=== PATIENT | male | born 1955 | race Caucasian/White ===

== ENCOUNTER 2018-09-19 11:24 | Inpatient (IN) | payer OTHER, MEDICAID ==
[~2018-09-19] VITALS: Ht 170.2 cm; Wt 109.4 kg
[2018-09-19] MEDS ORDERED: ADENOSINE 3 MG/ML 2ML VIAL IV ONE ×4 (11:35→11:45)
[2018-09-19] MEDS ORDERED: DILTIAZEM HCL 5MG/ML 5ML VIAL IV ONE ×2 (11:48→12:00)
[2018-09-19] MEDS ORDERED: ONDANSETRON HCL 4MG/2ML INJ IV STA (11:53)
[2018-09-19] MEDS ORDERED: MORPHINE SULFATE 4 MG/ML CPJ (NOT FOR IM USE) IV STA (11:53)
[2018-09-19] MEDS ORDERED: FUROSEMIDE 40MG/4ML VIAL IV ONE (12:00)
[2018-09-19] MEDS ORDERED: NITROGLYCERIN OINT 1GM/INCH UDPKT TD ONE (12:00)
[2018-09-19] MEDS ORDERED: ASPIRIN 81MG TABLET PO ONE (12:00)
[2018-09-19] MEDS ORDERED: DILTIAZEM HCL 125 MG in DEXT 5% WATER 100 ML IV ONE (12:00)
[2018-09-19 12:01] LABS: BASOPHILS % 1.1 % (0.0-2.0); EOSINOPHILS % 2.6 % (0.0-5.0); HEMATOCRIT. 32.5 % (42.0-52.0); HEMOGLOBIN. 10.6 g/dL (14.0-18.0); LYMPHOCYTES % 28.8 % (20.0-50.0); MEAN CORPUSCULAR VOLUME 92.3 fL (80.0-94.0); MEAN PLATELET VOLUME 7.5 fl (7.4-10.4); NEUTROPHILS % 54.5 % (40.0-76.0); PLATELET 116 x1000/uL (130-400); RED BLOOD CELL COUNT 3.52 mill/uL (4.7-6.1); RED CELL DISTRIBUTION WIDTH 18.5 % (11.6-14.6)
[2018-09-19 12:09] LABS: CHLORIDE 102 mEq/L (98-107)
[2018-09-19 12:14] LABS: INR 1.4; PARTIAL THROMBOPLASTIN TIME 27.7 sec (23.4-31.0); PROTHROMBIN TIME 13.7 sec (9.6-11.0)
[2018-09-19 12:15] LABS: ETHANOL BLOOD 42 mg/dL
[2018-09-19] MEDS ORDERED: DILTIAZEM HCL 125 MG in DEXT 5% WATER 100 ML IV NR (12:15)
[2018-09-19 12:20] LABS: T4 FREE 1.31 ng/dL (0.76-1.46)
[2018-09-19] MEDS ORDERED: ONDANSETRON HCL 4MG/2ML INJ IV PRN (12:45)
[2018-09-19] MEDS ORDERED: ENOXAPARIN 40MG/0.4ML SYR SUBCUT SCH (12:45)
[2018-09-19] MEDS ORDERED: CLONIDINE 0.1MG TABLET PO PRN (12:45)
[2018-09-19] MEDS ORDERED: ACETAMINOPHEN 325MG TABLET PO PRN (12:45)
[2018-09-19] MEDS ORDERED: LORAZEPAM 2MG/ML CPJ IV PRN (12:45)
[2018-09-19] MEDS ORDERED: MORPHINE SULFATE 2 MG/ML CPJ (NOT FOR IM USE) IV PRN (12:45)
[2018-09-19] MEDS ORDERED: MAGNESIUM/ALUMINUM HYDROXIDE/SIMETHICONE 30ML UDC PO PRN (12:45)
[2018-09-19] MEDS ORDERED: IPRATROPIUM/ALBUTEROL 0.5-3(2.5)MG/3ML NEB INH PRN (12:45)
[2018-09-19 15:52] VITALS: BP 136/81
[2018-09-19] MEDS ORDERED: DILTIAZEM HCL 5MG/ML 5ML VIAL IV PRN (16:30)
[2018-09-19] MEDS ORDERED: HYDROMORPHONE HCL/PF 2MG/ML CPJ IV PRN (16:30)
[2018-09-19 17:14] LABS: CHLORIDE 103 mEq/L (98-107)
[2018-09-19 18:00] VITALS: BP 141/77
[2018-09-19] MEDS: ENOXAPARIN 100MG/ML SYR SUBCUT SCH (18:28)
[2018-09-19 20:00] VITALS: BP 138/73
[2018-09-19] MEDS: IPRATROPIUM BROMIDE (0.02%) 0.5MG/2.5ML NEB HHN SCH (20:27)
[2018-09-19] MEDS: DILTIAZEM HCL 60MG TABLET PO SCH (21:03)
[2018-09-19 22:00] VITALS: BP 137/70
[2018-09-19] MEDS: GUAIFENESIN 200MG/10ML SUGAR FREE UDC PO PRN (22:57)
[2018-09-20] VITALS (12 sets, daily range): BP systolic 117–156; BP diastolic 62–84
[2018-09-20] MEDS: IPRATROPIUM BROMIDE (0.02%) 0.5MG/2.5ML NEB HHN SCH ×4 (02:07→20:31)
[2018-09-20] MEDS: ENOXAPARIN 100MG/ML SYR SUBCUT SCH (05:39)
[2018-09-20] MEDS: DILTIAZEM HCL 60MG TABLET PO SCH ×4 (05:40→23:49)
[2018-09-20] MEDS: GUAIFENESIN 200MG/10ML SUGAR FREE UDC PO PRN ×2 (06:05→23:50)
[2018-09-20 06:51] LABS: HEMATOCRIT. 28.6 % (42.0-52.0); HEMOGLOBIN. 9.6 g/dL (14.0-18.0); MEAN CORPUSCULAR HEMOGLOBIN 30.7 pg (28.0-32.0); MEAN CORPUSCULAR VOLUME 91.6 fL (80.0-94.0); MEAN PLATELET VOLUME 7.4 fl (7.4-10.4); PLATELET 93 x1000/uL (130-400); RED BLOOD CELL COUNT 3.13 mill/uL (4.7-6.1); RED CELL DISTRIBUTION WIDTH 18.2 % (11.6-14.6)
[2018-09-20 07:36] LABS: CHLORIDE 102 mEq/L (98-107)
[2018-09-20 07:44] LABS: LDL CHOLESTEROL 53 mg/dL (5-100); T4 FREE 1.29 ng/dL (0.76-1.46)
[2018-09-20 07:45] LABS: HDL CHOLESTEROL 27 mg/dL (40-59)
[2018-09-20] MEDS: ASPIRIN 81MG EC TABLET PO SCH (08:32)
[2018-09-20] MEDS ORDERED: FUROSEMIDE 40MG/4ML VIAL IV SCH (09:00)
[2018-09-20 10:09] LABS: NUCLEATED RED BLOOD CELLS 1 /100 WBC
[2018-09-20 10:10] LABS: PLATELET ESTIMATE DECREASED
[2018-09-20] MEDS: POTASSIUM CHLORIDE 20MEQ TABLET SR PO SCH (11:48)
[2018-09-20] MEDS ORDERED: MAGNESIUM 2 G PREMIX 50 ML IV NR (13:00)
[2018-09-20 13:17] LABS: CLARITY URINE CLEAR (CLEAR); COLOR URINE DARK YELLOW (YELLOW); KETONES URINE NEGATIVE (NEGATIVE); LEUKOCYTE ESTERASE URINE NEGATIVE (NEGATIVE); NITRITE URINE NEGATIVE (NEGATIVE); OCCULT BLOOD URINE TRACE (NEGATIVE); PROTEIN URINE NEGATIVE (NEGATIVE)
[2018-09-20 13:39] LABS: *AMPHETAMINES SCREEN URINE NEGATIVE (NEGATIVE); *BARBITURATES SCREEN URINE NEGATIVE (NEGATIVE); *BENZODIAZEPINES SCREEN URINE NEGATIVE (NEGATIVE)
[2018-09-20 13:40] LABS: *COCAINE SCREEN URINE NEGATIVE (NEGATIVE); METHADONE URINE SCREEN NEGATIVE (NEGATIVE); OPIATES URINE SCREEN PRESUMTIVE POSITIVE (NEGATIVE); PHENCYCLIDINE URINE SCREEN NEGATIVE (NEGATIVE)
[2018-09-20 13:43] LABS: CANNABINOID URINE SCREEN NEGATIVE (NEGATIVE)
[2018-09-20] MEDS: FUROSEMIDE 40MG/4ML VIAL IV SCH (18:19)
[2018-09-20] MEDS: ENOXAPARIN 150MG/ML SYR SUBCUT SCH (18:20)
[2018-09-21] VITALS (12 sets, daily range): BP systolic 110–146; BP diastolic 53–88
[2018-09-21] MEDS: IPRATROPIUM BROMIDE (0.02%) 0.5MG/2.5ML NEB HHN SCH ×4 (01:43→20:30)
[2018-09-21] MEDS: DILTIAZEM HCL 60MG TABLET PO SCH ×3 (06:07→17:58)
[2018-09-21] MEDS: ENOXAPARIN 150MG/ML SYR SUBCUT SCH (06:08)
[2018-09-21] MEDS: GUAIFENESIN 200MG/10ML SUGAR FREE UDC PO PRN ×3 (06:24→21:41)
[2018-09-21] MEDS: FUROSEMIDE 40MG/4ML VIAL IV SCH ×2 (06:25→17:58)
[2018-09-21 06:36] LABS: HEMATOCRIT. 27.2 % (42.0-52.0); HEMOGLOBIN. 9.1 g/dL (14.0-18.0); MEAN CORPUSCULAR HEMOGLOBIN 30.7 pg (28.0-32.0); MEAN CORPUSCULAR VOLUME 91.4 fL (80.0-94.0); MEAN PLATELET VOLUME 7.6 fl (7.4-10.4); PLATELET 88 x1000/uL (130-400); RED BLOOD CELL COUNT 2.98 mill/uL (4.7-6.1); RED CELL DISTRIBUTION WIDTH 18.2 % (11.6-14.6)
[2018-09-21 07:37] LABS: CHLORIDE 99 mEq/L (98-107)
[2018-09-21] MEDS: ASPIRIN 81MG EC TABLET PO SCH (09:13)
[2018-09-21] MEDS: POTASSIUM CHLORIDE 20MEQ TABLET SR PO SCH ×2 (09:13→18:46)
[2018-09-21] MEDS: DOCUSATE SODIUM 100MG CAPSULE PO PRN (13:13)
[2018-09-21 13:26] LABS: PLATELET ESTIMATE DECREASED
[2018-09-21] MEDS: APIXABAN 5 MG TABLET PO SCH (17:57)
[2018-09-21] MEDS: LISINOPRIL 10MG TABLET PO SCH (21:16)
[2018-09-21] MEDS: HYDROCODONE/ACETAMINOPHEN 5/325MG TABLET PO PRN (21:41)
[2018-09-22] VITALS (11 sets, daily range): BP systolic 103–134; BP diastolic 51–88
[2018-09-22] MEDS: DILTIAZEM HCL 60MG TABLET PO SCH ×4 (00:24→17:28)
[2018-09-22] MEDS: IPRATROPIUM BROMIDE (0.02%) 0.5MG/2.5ML NEB HHN SCH ×4 (01:47→22:10)
[2018-09-22] MEDS: FUROSEMIDE 40MG/4ML VIAL IV SCH (06:16)
[2018-09-22 06:30] LABS: CHLORIDE 98 mEq/L (98-107); HEMATOCRIT. 27.5 % (42.0-52.0); HEMOGLOBIN. 9.1 g/dL (14.0-18.0); MEAN CORPUSCULAR HEMOGLOBIN 30.1 pg (28.0-32.0); MEAN CORPUSCULAR VOLUME 91.3 fL (80.0-94.0); MEAN PLATELET VOLUME 7.3 fl (7.4-10.4); PLATELET 88 x1000/uL (130-400); RED BLOOD CELL COUNT 3.01 mill/uL (4.7-6.1); RED CELL DISTRIBUTION WIDTH 18.6 % (11.6-14.6)
[2018-09-22] MEDS: APIXABAN 5 MG TABLET PO SCH ×2 (08:12→17:51)
[2018-09-22] MEDS: POTASSIUM CHLORIDE 20MEQ TABLET SR PO SCH ×2 (08:12→17:51)
[2018-09-22] MEDS ORDERED: POTASSIUM CHLORIDE 20MEQ TABLET SR PO NR (09:45)
[2018-09-22] MEDS: LISINOPRIL 10MG TABLET PO SCH ×2 (10:19→21:06)
[2018-09-22 10:24] LABS: PLATELET ESTIMATE DECREASED
[2018-09-22] MEDS: METOLAZONE 5MG TABLET PO SCH ×2 (15:00→21:06)
[2018-09-22] MEDS: GUAIFENESIN 200MG/10ML SUGAR FREE UDC PO PRN ×2 (15:09→21:45)
[2018-09-22] MEDS: FUROSEMIDE 100MG/10ML VIAL IV SCH (17:52)
[2018-09-22] MEDS: HYDROCODONE/ACETAMINOPHEN 5/325MG TABLET PO PRN (21:47)
[2018-09-23] VITALS: BP 112/39
[2018-09-23] MEDS: DILTIAZEM HCL 60MG TABLET PO SCH ×2 (00:10→05:54)
[2018-09-23] MEDS: IPRATROPIUM BROMIDE (0.02%) 0.5MG/2.5ML NEB HHN SCH ×4 (02:40→21:20)
[2018-09-23 04:00] VITALS: BP 113/50
[2018-09-23] MEDS: FUROSEMIDE 100MG/10ML VIAL IV SCH ×2 (06:24→18:01)
[2018-09-23 06:39] LABS: CHLORIDE 89 mEq/L (98-107)
[2018-09-23 06:55] LABS: HEMATOCRIT. 27.9 % (42.0-52.0); HEMOGLOBIN. 9.4 g/dL (14.0-18.0); MEAN CORPUSCULAR HEMOGLOBIN 30.4 pg (28.0-32.0); MEAN CORPUSCULAR VOLUME 90.3 fL (80.0-94.0); MEAN PLATELET VOLUME 7.5 fl (7.4-10.4); PLATELET 92 x1000/uL (130-400); RED CELL DISTRIBUTION WIDTH 18.8 % (11.6-14.6)
[2018-09-23 08:00] VITALS: BP 114/51
[2018-09-23] MEDS ORDERED: POTASSIUM CHLORIDE 20MEQ TABLET SR PO SCH (08:15)
[2018-09-23] MEDS: METOLAZONE 5MG TABLET PO SCH (09:24)
[2018-09-23] MEDS: APIXABAN 5 MG TABLET PO SCH ×2 (09:25→18:01)
[2018-09-23] MEDS: LISINOPRIL 10MG TABLET PO SCH ×2 (09:25→21:00)
[2018-09-23] MEDS: POTASSIUM CHLORIDE 20MEQ TABLET SR PO SCH ×2 (09:25→18:01)
[2018-09-23] MEDS ORDERED: IPRATROPIUM/ALBUTEROL 0.5-3(2.5)MG/3ML NEB INH PRN (10:30)
[2018-09-23 11:05] LABS: BG BASE EXCESS 9.9 mmol/L (-2.0-2.0); BG CARBOXYHEMOGLOBIN 1.2 % (0.5-1.5); BG DEOXYHEMOGLOBIN 7.5 % (0.0-5.0); BG FRACTION INSPIRED OXYGEN 21; BG HCO3 ACT 34.2 mmol/L (22.0-26.0); BG METHEMOGLOBIN 0.3 % (0.0-1.5); BG OXYGEN SATURATION 92.4 % (92.0-98.5); BG PH 7.499 (7.350-7.450); BG PO2 64.5 mmHg (75.0-100.0); BG SAMPLE SITE RIGHT BRACHIAL; BG TOTAL HEMOGLOBIN 11.3 g/dL (12.0-18.0); BG VENT MODE ROOM AIR
[2018-09-23] MEDS ORDERED: MAGNESIUM 4 G PREMIX 100 ML IV NR (11:30)
[2018-09-23] MEDS: DILTIAZEM HCL 90MG TABLET PO SCH ×2 (11:51→18:00)
[2018-09-23 12:00] VITALS: BP 94/48
[2018-09-23] MEDS ORDERED: POTASSIUM CHLORIDE 20MEQ TABLET SR PO NR (15:00)
[2018-09-23 16:00] VITALS: BP 102/58
[2018-09-23 20:00] VITALS: BP 101/53
[2018-09-23] MEDS: GUAIFENESIN 200MG/10ML SUGAR FREE UDC PO PRN (21:43)
[2018-09-23] MEDS: HYDROCODONE/ACETAMINOPHEN 5/325MG TABLET PO PRN (21:44)
[2018-09-23 22:48] LABS: PLATELET ESTIMATE DECREASED
[2018-09-24] VITALS: BP 131/67
[2018-09-24] MEDS: DILTIAZEM HCL 90MG TABLET PO SCH ×4 (00:39→17:06)
[2018-09-24] MEDS: IPRATROPIUM BROMIDE (0.02%) 0.5MG/2.5ML NEB HHN SCH ×4 (03:04→21:10)
[2018-09-24 04:00] VITALS: BP 94/56
[2018-09-24 06:32] LABS: HEMATOCRIT. 30.6 % (42.0-52.0); HEMOGLOBIN. 10.3 g/dL (14.0-18.0); MEAN CORPUSCULAR HEMOGLOBIN 30.2 pg (28.0-32.0); MEAN CORPUSCULAR VOLUME 89.5 fL (80.0-94.0); MEAN PLATELET VOLUME 7.2 fl (7.4-10.4); PLATELET 107 x1000/uL (130-400); RED BLOOD CELL COUNT 3.42 mill/uL (4.7-6.1)
[2018-09-24] MEDS: FUROSEMIDE 100MG/10ML VIAL IV SCH ×2 (07:15→16:29)
[2018-09-24 07:25] LABS: CHLORIDE 84 mEq/L (98-107)
[2018-09-24 08:00] VITALS: BP 100/46
[2018-09-24] MEDS: LISINOPRIL 10MG TABLET PO SCH ×2 (08:36→21:00)
[2018-09-24] MEDS: POTASSIUM CHLORIDE 20MEQ TABLET SR PO SCH ×2 (08:36→16:30)
[2018-09-24] MEDS: APIXABAN 5 MG TABLET PO SCH ×2 (08:36→16:30)
[2018-09-24 12:00] VITALS: BP 102/58
[2018-09-24 13:06] LABS: PLATELET ESTIMATE SLIGHTLY DECREASED
[2018-09-24 16:00] VITALS: BP 101/65
[2018-09-24 20:00] VITALS: BP 104/58
[2018-09-24] MEDS: GUAIFENESIN 200MG/10ML SUGAR FREE UDC PO PRN (21:17)
[2018-09-24] MEDS: HYDROCODONE/ACETAMINOPHEN 5/325MG TABLET PO PRN (21:18)
[2018-09-25] VITALS (8 sets, daily range): BP systolic 97–126; BP diastolic 42–69
[2018-09-25] MEDS: IPRATROPIUM BROMIDE (0.02%) 0.5MG/2.5ML NEB HHN SCH ×4 (01:25→21:01)
[2018-09-25] MEDS: FUROSEMIDE 100MG/10ML VIAL IV SCH ×2 (06:10→17:05)
[2018-09-25] MEDS: DILTIAZEM HCL 90MG TABLET PO SCH ×5 (06:10→23:52)
[2018-09-25 07:00] LABS: HEMATOCRIT. 31.4 % (42.0-52.0); HEMOGLOBIN. 10.4 g/dL (14.0-18.0); MEAN CORPUSCULAR HEMOGLOBIN 29.6 pg (28.0-32.0); MEAN CORPUSCULAR VOLUME 89.8 fL (80.0-94.0); MEAN PLATELET VOLUME 7.4 fl (7.4-10.4); PLATELET 105 x1000/uL (130-400); RED CELL DISTRIBUTION WIDTH 17.5 % (11.6-14.6)
[2018-09-25 07:54] LABS: CHLORIDE 85 mEq/L (98-107)
[2018-09-25] MEDS: LISINOPRIL 10MG TABLET PO SCH ×2 (09:00→21:00)
[2018-09-25] MEDS: APIXABAN 5 MG TABLET PO SCH ×2 (09:30→17:05)
[2018-09-25] MEDS: POTASSIUM CHLORIDE 20MEQ TABLET SR PO SCH ×2 (09:30→17:05)
[2018-09-25] MEDS ORDERED: METOLAZONE 2.5MG TABLET PO NR (11:00)
[2018-09-25 12:51] LABS: HEPATITIS B SURFACE ANTIGEN NEGATIVE
[2018-09-25] MEDS ORDERED: POTASSIUM CHLORIDE 20MEQ TABLET SR PO NR (13:00)
[2018-09-25] MEDS ORDERED: MAGNESIUM 2 G PREMIX 50 ML IV NR (13:00)
[2018-09-25 13:20] LABS: HEPATITIS A AB IGM NEGATIVE (NEGATIVE)
[2018-09-25 20:47] LABS: PLATELET ESTIMATE DECREASED
[2018-09-26] MEDS: IPRATROPIUM BROMIDE (0.02%) 0.5MG/2.5ML NEB HHN SCH ×4 (02:33→19:54)
[2018-09-26 04:00] VITALS: BP 101/52
[2018-09-26] MEDS: DILTIAZEM HCL 90MG TABLET PO SCH ×2 (05:51→12:00)
[2018-09-26 06:30] LABS: INR 1.4; PROTHROMBIN TIME 13.9 sec (9.6-11.0)
[2018-09-26 06:39] LABS: CHLORIDE 87 mEq/L (98-107)
[2018-09-26 06:47] LABS: HEMATOCRIT. 33.2 % (42.0-52.0); HEMOGLOBIN. 11.2 g/dL (14.0-18.0); MEAN CORPUSCULAR HEMOGLOBIN 30.1 pg (28.0-32.0); MEAN CORPUSCULAR VOLUME 88.9 fL (80.0-94.0); MEAN PLATELET VOLUME 7.3 fl (7.4-10.4); PLATELET 106 x1000/uL (130-400); RED BLOOD CELL COUNT 3.73 mill/uL (4.7-6.1); RED CELL DISTRIBUTION WIDTH 18.2 % (11.6-14.6)
[2018-09-26 07:09] VITALS: BP 103/45
[2018-09-26] MEDS: FUROSEMIDE 100MG/10ML VIAL IV SCH ×2 (07:11→16:58)
[2018-09-26] MEDS: LISINOPRIL 10MG TABLET PO SCH (09:00)
[2018-09-26] MEDS: POTASSIUM CHLORIDE 20MEQ TABLET SR PO SCH ×2 (10:13→16:57)
[2018-09-26] MEDS: APIXABAN 5 MG TABLET PO SCH ×2 (10:13→16:58)
[2018-09-26] MEDS: HYDROCODONE/ACETAMINOPHEN 5/325MG TABLET PO PRN (10:16)
[2018-09-26 12:00] VITALS: BP 100/50
[2018-09-26] MEDS ORDERED: POTASSIUM CHLORIDE 20MEQ TABLET SR PO NR (13:30)
[2018-09-26 16:13] VITALS: BP 98/55
[2018-09-26 16:20] LABS: PLATELET ESTIMATE DECREASED
[2018-09-26] MEDS: DOCUSATE SODIUM 100MG CAPSULE PO PRN (16:58)
[2018-09-26] MEDS: DILTIAZEM HCL 60MG TABLET PO SCH (18:00)
[2018-09-26 20:00] VITALS: BP 117/63
[2018-09-26] MEDS: LISINOPRIL 5MG TABLET PO SCH (21:59)
[2018-09-27] VITALS: BP 106/55
[2018-09-27] MEDS: DOCUSATE SODIUM 100MG CAPSULE PO PRN (02:11)
[2018-09-27] MEDS: GUAIFENESIN 200MG/10ML SUGAR FREE UDC PO PRN (02:15)
[2018-09-27] MEDS: IPRATROPIUM BROMIDE (0.02%) 0.5MG/2.5ML NEB HHN SCH ×4 (02:19→20:56)
[2018-09-27] MEDS: DILTIAZEM HCL 60MG TABLET PO SCH ×4 (05:39→17:20)
[2018-09-27 07:09] VITALS: BP 105/62
[2018-09-27] MEDS: FUROSEMIDE 100MG/10ML VIAL IV SCH (07:15)
[2018-09-27 07:42] LABS: CHLORIDE 91 mEq/L (98-107)
[2018-09-27] MEDS: POTASSIUM CHLORIDE 20MEQ TABLET SR PO SCH ×2 (09:14→17:22)
[2018-09-27] MEDS: APIXABAN 5 MG TABLET PO SCH ×2 (09:14→17:22)
[2018-09-27] MEDS: LISINOPRIL 5MG TABLET PO SCH (09:15)
[2018-09-27 12:00] VITALS: BP 88/52
[2018-09-27] MEDS ORDERED: SPIRONOLACTONE 25MG TABLET PO SCH (12:00)
[2018-09-27] MEDS ORDERED: MAGNESIUM 2 G PREMIX 50 ML IV NR (13:00)
[2018-09-27] MEDS ORDERED: POTASSIUM CHLORIDE 20MEQ TABLET SR PO NR (13:00)
[2018-09-27 16:00] VITALS: BP 94/63
[2018-09-27] MEDS: FUROSEMIDE 40MG/4ML VIAL IV SCH (17:22)
[2018-09-27 20:00] VITALS: BP 110/53
[2018-09-28] VITALS (7 sets, daily range): BP systolic 92–111; BP diastolic 47–65
[2018-09-28] MEDS: DILTIAZEM HCL 60MG TABLET PO SCH
[2018-09-28] MEDS: IPRATROPIUM BROMIDE (0.02%) 0.5MG/2.5ML NEB HHN SCH ×4 (01:13→21:02)
[2018-09-28 06:10] LABS: HEMATOCRIT. 32.8 % (42.0-52.0); HEMOGLOBIN. 10.9 g/dL (14.0-18.0); MEAN CORPUSCULAR HEMOGLOBIN 29.9 pg (28.0-32.0); MEAN CORPUSCULAR VOLUME 89.9 fL (80.0-94.0); MEAN PLATELET VOLUME 7.5 fl (7.4-10.4); PLATELET 101 x1000/uL (130-400); RED BLOOD CELL COUNT 3.65 mill/uL (4.7-6.1); RED CELL DISTRIBUTION WIDTH 17.6 % (11.6-14.6)
[2018-09-28 06:19] LABS: CHLORIDE 95 mEq/L (98-107)
[2018-09-28] MEDS: FUROSEMIDE 40MG/4ML VIAL IV SCH ×2 (06:43→17:14)
[2018-09-28] MEDS ORDERED: LISINOPRIL 5MG TABLET PO SCH (09:00)
[2018-09-28] MEDS: APIXABAN 5 MG TABLET PO SCH ×2 (09:02→17:14)
[2018-09-28] MEDS: SPIRONOLACTONE 25MG TABLET PO SCH (09:02)
[2018-09-28] MEDS: POTASSIUM CHLORIDE 20MEQ TABLET SR PO SCH ×2 (09:02→17:14)
[2018-09-28] MEDS: CARVEDILOL 3.125 MG TABLET PO SCH ×2 (09:02→23:33)
[2018-09-28] MEDS: LISINOPRIL 2.5MG TABLET PO SCH (09:03)
[2018-09-28 13:01] LABS: PLATELET ESTIMATE DECREASED
[2018-09-29] MEDS: IPRATROPIUM BROMIDE (0.02%) 0.5MG/2.5ML NEB HHN SCH ×4 (01:29→20:33)
[2018-09-29 04:00] VITALS: BP 95/62
[2018-09-29] MEDS: FUROSEMIDE 40MG/4ML VIAL IV SCH ×2 (06:37→17:39)
[2018-09-29 07:49] LABS: EOSINOPHILS % 11.3 % (0.0-5.0); HEMATOCRIT. 34.8 % (42.0-52.0); HEMOGLOBIN. 11.7 g/dL (14.0-18.0); LYMPHOCYTES % 44.8 % (20.0-50.0); MEAN CORPUSCULAR HEMOGLOBIN 30.2 pg (28.0-32.0); MEAN CORPUSCULAR VOLUME 89.6 fL (80.0-94.0); MEAN PLATELET VOLUME 7.6 fl (7.4-10.4); MONOCYTES % 14.5 % (2.0-8.0); NEUTROPHILS % 26.4 % (40.0-76.0); PLATELET 113 x1000/uL (130-400); RED BLOOD CELL COUNT 3.88 mill/uL (4.7-6.1); RED CELL DISTRIBUTION WIDTH 18.2 % (11.6-14.6)
[2018-09-29 08:00] VITALS: BP 100/58
[2018-09-29 08:03] LABS: CHLORIDE 100 mEq/L (98-107)
[2018-09-29] MEDS: CARVEDILOL 3.125 MG TABLET PO SCH (08:13)
[2018-09-29] MEDS: SPIRONOLACTONE 25MG TABLET PO SCH (08:13)
[2018-09-29] MEDS: LISINOPRIL 2.5MG TABLET PO SCH (08:14)
[2018-09-29] MEDS: POTASSIUM CHLORIDE 20MEQ TABLET SR PO SCH ×2 (08:36→17:38)
[2018-09-29] MEDS: APIXABAN 5 MG TABLET PO SCH ×2 (08:37→17:38)
[2018-09-29] MEDS ORDERED: POTASSIUM CHLORIDE 20MEQ TABLET SR PO NR (09:00)
[2018-09-29 11:33] VITALS: BP 105/62
[2018-09-29] MEDS: DOCUSATE SODIUM 100MG CAPSULE PO PRN (11:55)
[2018-09-29] MEDS: CARVEDILOL 6.25 MG TABLET PO SCH ×2 (11:55→21:00)
[2018-09-29 15:30] VITALS: BP 95/52
[2018-09-29 21:03] VITALS: BP 95/59
[2018-09-30 00:30] VITALS: BP 95/49
[2018-09-30] MEDS: IPRATROPIUM BROMIDE (0.02%) 0.5MG/2.5ML NEB HHN SCH ×3 (01:50→14:24)
[2018-09-30 04:00] VITALS: BP 99/53
[2018-09-30 06:14] LABS: BASOPHILS % 1.5 % (0.0-2.0); EOSINOPHILS % 10.8 % (0.0-5.0); HEMATOCRIT. 34.1 % (42.0-52.0); HEMOGLOBIN. 11.5 g/dL (14.0-18.0); LYMPHOCYTES % 47.8 % (20.0-50.0); MEAN CORPUSCULAR HEMOGLOBIN 29.8 pg (28.0-32.0); MEAN CORPUSCULAR VOLUME 88.7 fL (80.0-94.0); MEAN PLATELET VOLUME 7.8 fl (7.4-10.4); MONOCYTES % 14.9 % (2.0-8.0); PLATELET 108 x1000/uL (130-400); RED BLOOD CELL COUNT 3.84 mill/uL (4.7-6.1)
[2018-09-30] MEDS: FUROSEMIDE 40MG/4ML VIAL IV SCH ×2 (06:19→16:53)
[2018-09-30 06:33] LABS: CHLORIDE 102 mEq/L (98-107)
[2018-09-30 08:00] VITALS: BP 105/50
[2018-09-30] MEDS: SPIRONOLACTONE 25MG TABLET PO SCH (09:10)
[2018-09-30] MEDS: APIXABAN 5 MG TABLET PO SCH ×2 (09:10→16:53)
[2018-09-30] MEDS: POTASSIUM CHLORIDE 20MEQ TABLET SR PO SCH ×2 (09:10→16:53)
[2018-09-30] MEDS: CARVEDILOL 6.25 MG TABLET PO SCH (09:10)
[2018-09-30 11:39] VITALS: BP 107/52
[2018-09-30] MEDS ORDERED: ONDANSETRON HCL 4MG TABLET PO PRN (15:15)
[2018-09-30 16:35] VITALS: BP 112/59
[2018-09-30 18:10] VITALS: BP 112/59
== END 2018-09-30 18:40 | disposition home or self-care (01) | DRG 194 ==
LOC: ER 11:24 → 5EST 12:53 → EDBEDREQTM 12:55 → EDBEDREQ 12:55 → ENRESERV 13:00 → 8WST 09-22 16:40
PROVIDERS: ADMIT Internal Medicine; ATTEND Internal Medicine
DX: I11.0 Hypertensive heart disease with heart failure (principal); J96.00 Acute respiratory failure, unspecified whether with hypoxia or hypercapnia; I47.2 Ventricular tachycardia; D61.818 Other pancytopenia; I95.9 Hypotension, unspecified; D68.9 Coagulation defect, unspecified; I42.0 Dilated cardiomyopathy; I42.9 Cardiomyopathy, unspecified; I50.23 Acute on chronic systolic (congestive) heart failure; I25.10 Atherosclerotic heart disease of native coronary artery without angina pectoris; E11.9 Type 2 diabetes mellitus without complications; E87.6 Hypokalemia; B19.20 Unspecified viral hepatitis C without hepatic coma; E05.90 Thyrotoxicosis, unspecified without thyrotoxic crisis or storm; E78.5 Hyperlipidemia, unspecified; I43 Cardiomyopathy in diseases classified elsewhere; I49.3 Ventricular premature depolarization; J98.11 Atelectasis; I48.91 Unspecified atrial fibrillation; Z79.899 Other long term (current) drug therapy; Z91.19 Patient's noncompliance with other medical treatment and regimen
CPT/HCPCS: 36415; 36600; 71045; 80048; 80061; 80305; 80320; 82375; 82805; 82962; 83735; 83880; 84132; 84439; 84443; 84481; 84484; 86705; 86709; 86803; 87340; 93005; 93306; 94618; 94640; 96365; 96375; 96376; 97116; 97162; 97166; 97530; 97535; 99291; C1893; J0153; J1650; J1940; J2060; J2270; J2405; J3475; J3490; J7050; J7060; J7620; G0480